=== PATIENT | female | born 2000 | race American Indian/Alaskan Native ===

== ENCOUNTER 2020-10-22 21:22 | Emergency (ER) | payer SELFPAY ==
[2020-10-22 22:30] VITALS: BP 158/98
[2020-10-22] MEDS ORDERED: IBUPROFEN 600 MG TAB PO ONE (22:31)
--- NOTE | 2020-10-22 23:27 | XRay Report ---
Right ankle radiograph, 3 views HISTORY: Pain COMPARISON: None FINDINGS: No acute fracture, malalignment, or soft tissue abnormality. IMPRESSION: No acute process Signer Name: Delvin Seth MD Signed: 10/22/2020 11:23 PM Workstation Name: [id number]
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
--- NOTE | 2020-10-23 01:07 | XRay Report ---
Right foot radiograph, 3 views HISTORY: Lateral foot pain COMPARISON: None FINDINGS: No acute fracture or malalignment. Lisfranc interval is preserved. No focal soft tissue abn ormality. IMPRESSION: No acute process of the right foot. Signer Name: Delvin Seth MD Signed: 10/23/2020 1:03 AM Workstation Name: [id number]
== END 2020-10-23 02:37 | disposition home or self-care (01) ==
LOC: ED 21:22
DX: S93.401A Sprain of unspecified ligament of right ankle, initial encounter (principal); J45.909 Unspecified asthma, uncomplicated; Z79.899 Other long term (current) drug therapy; X50.0XXA Overexertion from strenuous movement or load, initial encounter; Y93.89 Activity, other specified; Y92.89 Other specified places as the place of occurrence of the external cause; Y99.0 Civilian activity done for income or pay